=== PATIENT | male | born 1990 | race African-American/Black ===

== ENCOUNTER 2020-05-30 13:11 | Emergency (ER) | payer MEDICAID ==
[~2020-05-30] VITALS: Ht 165.1 cm; Wt 68.0 kg
[2020-05-30] MEDS ORDERED: SODIUM CHLORIDE 0.9% 1,000 ML IV ONE (14:00)
[2020-05-30] MEDS ORDERED: MORPHINE SULFATE 4 MG/ML CPJ (NOT FOR IM USE) IV ONE (14:15)
[2020-05-30] MEDS ORDERED: ONDANSETRON HCL 4MG/2ML INJ IV ONE (14:15)
[2020-05-30 15:48] LABS: HEMATOCRIT. 40.4 % (42.0-52.0); HEMOGLOBIN. 13.7 g/dL (14.0-18.0); MEAN CORPUSCULAR HEMOGLOBIN 25.6 pg (28.0-32.0); MEAN CORPUSCULAR VOLUME 75.5 fL (80.0-94.0); MEAN PLATELET VOLUME 6.8 fl (7.4-10.4); PLATELET 335 x1000/uL (130-400); RED BLOOD CELL COUNT 5.36 mill/uL (4.7-6.1); RED CELL DISTRIBUTION WIDTH 13.5 % (11.6-14.6)
[2020-05-30 15:53] LABS: CHLORIDE 107 mEq/L (98-107)
[2020-05-30 15:57] LABS: PROTHROMBIN TIME 10.7 sec (9.6-11.0)
[2020-05-30] MEDS ORDERED: MUPIROCIN 2% OINT 22GM NS STA (15:58)
[2020-05-30 16:36] LABS: PLATELET ESTIMATE NORMAL
[2020-05-30] MEDS ORDERED: MUPI15CR11 TP (17:28)
[2020-05-30] MEDS ORDERED: HYDR-4346 MT (17:28)
[2020-05-30 17:30] VITALS: BP 118/73
== END 2020-05-30 18:50 | disposition home or self-care (01) ==
LOC: ER 13:49
DX: S82.491A Other fracture of shaft of right fibula, initial encounter for closed fracture (principal); K59.00 Constipation, unspecified; F17.290 Nicotine dependence, other tobacco product, uncomplicated; F15.10 Other stimulant abuse, uncomplicated; V49.49XA Driver injured in collision with other motor vehicles in traffic accident, initial encounter; Y93.89 Activity, other specified; Y92.89 Other specified places as the place of occurrence of the external cause; Y99.8 Other external cause status; Z87.09 Personal history of other diseases of the respiratory system; Z88.0 Allergy status to penicillin
CPT/HCPCS: 36415; 71045; 73080; 73590; 73610; 73630; 80053; 83690; 85025; 85610; 86850; 86900; 86901; 93005; 96361; 96374; 96375; 99285; J2270; J2405; J7030; L1830; Z7610